=== PATIENT | male | born 1995 | race Hispanic/Latino ===

== ENCOUNTER 2020-11-17 18:45 | Emergency (ER) | payer OTHER ==
[~2020-11-17] VITALS: Ht 172.7 cm; Wt 104.5 kg
[2020-11-17] MEDS ORDERED: ACETAMINOPHEN 500 MG TAB PO ONE (20:20)
--- NOTE | 2020-11-17 21:21 | REPVR ---
PROCEDURE INFORMATION: Exam: XR Right Ankle Exam date and time: 11/17/2020 8:05 PM Age: 25 years old Clinical indication: Other: Pain after injury TECHNIQUE: Imaging protocol: XR Right ankle. Views: 3 or more views. COMPARISON: No relevant prior studies available. FINDINGS: Bones/joints: Joint spaces are normal. No fracture or malalignment. Soft tissues: Mild soft tissue swelling. There is a 2 mm density in the posterolateral foreleg soft tissues of uncertain significance. No subcutaneous gas is seen. IMPRESSION: 1. No fracture or malalignment. 2. Possible small foreign body or calcification in the posterolateral foreleg soft tissues. Electronically signed by: Wild Nuñez On 11/17/2020 21:21:03 PM
--- NOTE | 2020-11-17 22:34 | REPVR ---
PROCEDURE INFORMATION: Exam: XR Right Knee Exam date and time: 11/17/2020 10:18 PM Age: 25 years old Clinical indication: Pain; Ankle; Right; Additional info: Fall playing basketball TECHNIQUE: Imaging protocol: XR Right knee. Views: 4 or more views. COMPARISON: No relevant prior studies available. FINDINGS: Bones/joints: There is mild lateral patellar tilt. Joint spaces are otherwise unremarkable. No fracture or malalignment. Soft tissues: Normal. IMPRESSION: No fracture or malalignment. Electronically signed by: Wild Nuñez On 11/17/2020 22:34:48 PM
--- NOTE | 2020-11-17 22:37 | REPVR ---
PROCEDURE INFORMATION: Exam: XR Right Tibia and Fibula Exam date and time: 11/17/2020 10:18 PM Age: 25 years old Clinical indication: Pain; Ankle; Right; Additional info: Fall playing basketball TECHNIQUE: Imaging protocol: XR Right tibia and fibula. Views: 2 views. COMPARISON: No relevant prior studies available. FINDINGS: Bones/joints: Joint spaces are normal. No fracture or malalignment. Soft tissues: Mild soft tissue swelling at the ankle. IMPRESSION: 1. No fracture or malalignment. 2. Mild soft tissue swelling at the ankle. Electronically signed by: Wild Nuñez On 11/17/2020 22:37:16 PM
[2020-11-17 22:49] VITALS: BP 122/64
== END 2020-11-17 22:51 | disposition home or self-care (01) ==
LOC: M ED 18:45
DX: S93.401A Sprain of unspecified ligament of right ankle, initial encounter (principal); X50.1XXA Overexertion from prolonged static or awkward postures, initial encounter; Y92.89 Other specified places as the place of occurrence of the external cause; Y93.67 Activity, basketball; Y99.8 Other external cause status

== ENCOUNTER → 2020-12-19 | Outpatient (CLI) | payer OTHER ==
--- NOTE | 2020-12-19 08:54 | REP ---
INDICATION: MEDIAL MALEOLUS AVULSION FX,CUBOID/CALCANEAL FX. COMPARISON: Comparison right ankle radiographs are from 17 November 2020.. TECHNIQUE: Helical scanning of the right ankle is acquired and 2 mm axial images re-formatted. Coronal and sagittal MPR images are generated. FINDINGS: There is a 5 mm triangular bone density adjacent to medial malleolus which appears to be a tiny avulsion chip fracture from the medial malleolus. This is best seen on coronal MPR images. No other tibial fracture is apparent. There is however a tiny bone density along the anterior joint capsule 1 mm in size.a no fibular fracture is seen. The talar dome and tibial plafond appear intact. Ankle mortise is well aligned. Subtalar joint is normally aligned. No calcaneal or talar fracture is seen. There is a tiny Achilles calcaneal spur. There are abnormalities in the midfoot articulation. A 6 mm accessory ossicle is seen in the calcaneal navicular articulation. 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 Other midfoot articulations appear intact. No other fracture is seen. There is a small os perineum. IMPRESSION: 1. There is evidence of a medial malleolar chip fracture. This appears recent. 2. 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 There is an accessory ossicle in the talonavicular articulation adjacent to this. <Electronically signed by Arnav Puente > 12/19/20 [id number]
--- NOTE | 2020-12-19 09:19 | REP ---
INDICATION: MEDIAL MALEOLUS AVULSION FX,CUBOID/CALCANEAL FX. COMPARISON: Comparison ankle radiographs 17 November 2020.. TECHNIQUE: Helical scanning is acquired and 2 mm axial images are re-formatted. Coronal and sagittal MPR images are provided. FINDINGS: There is a 5 mm avulsion chip fracture from the medial malleolus. This is described in the ankle CT report from this date. A tiny bone density is seen along the anterior joint capsule at the ankle joint which may be related to this. No fibular or other tibial fracture is seen. There is chronic bony hypertrophy and slight fragmentation at the articulation between the cuboid bone and the tarsal navicula suggesting a fibrous tarsal coalition. There is an accessory ossicle in the calcaneal navicular articulation adjacent to this. A small os perineum is seen. These findings were described in the ankle CT report as well. No tarsal or metatarsal fracture is appreciated. No phalangeal fracture is seen. Soft tissues are unremarkable. IMPRESSION: Findings of recent avulsion chip fracture medial malleolus. 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 No tarsal, metatarsal, or phalangeal fracture. <Electronically signed by Arnav Puente > 12/19/20 0922
== END ==
LOC: M RAD 06:49
PROVIDERS: ATTEND Podiatrist Foot & Ankle Surgery
DX: S82.301A Unspecified fracture of lower end of right tibia, initial encounter for closed fracture (principal); W18.30XA Fall on same level, unspecified, initial encounter; Y92.009 Unspecified place in unspecified non-institutional (private) residence as the place of occurrence of the external cause